=== PATIENT | female | born 1985 | race Caucasian/White ===

== ENCOUNTER → 2023-12-11 | Outpatient (CLI) | payer BC | END | disposition home or self-care (01) | LOC: RAD 07:32 | PROVIDERS: ATTEND Nurse Practitioner Family | DX: M47.812 Spondylosis without myelopathy or radiculopathy, cervical region (principal); M25.78 Osteophyte, vertebrae; R42 Dizziness and giddiness; R25.1 Tremor, unspecified; R51.9 Headache, unspecified | CPT/HCPCS: 70553; 72156; A9579 ==

== ENCOUNTER 2024-08-03 08:54 | Emergency (ER) | payer BC ==
[~2024-08-03] VITALS: Ht 162.6 cm; Wt 97.1 kg
[2024-08-03 08:54] VITALS: BP 117/85; PULSE 90; RESP 18; TEMP 98.5; O2SAT 97
[2024-08-03 09:11] LABS: BASOPHIL % 0.3 % (0.1-1.2); EOSINOPHIL # 0.1 10^3/uL (0.0-0.2); HEMATOCRIT(ML) 40.7 % (36.0-46.0); HEMOGLOBIN 13.5 g/dL (12.0-15.0); LYMPHOCYTES # 1.47 10^3/uL1 (1.0-4.8); LYMPHOCYTES % 24.5 % (24.0-44.0); MEAN CORP HGB CONCENTRATION 33.2 g/dL (33-36.5); MEAN CORP VOLUME 87.5 fL (78-100); MONOCYTES # 0.4 10^3/uL (0.3-0.8); MONOCYTES % 7.2 % (5.0-12.0); NEUTROPHILS % 66.8 % (41.0-85.0); PLATELET COUNT 234 10^3/uL (150-400); RED BLOOD CELL 4.65 10^6/uL (4.00-5.20); RED CELL DISTRIBUTION WIDTH 12.7 % (11.5-14.5)
[2024-08-03 09:13] LABS: +ADD MANUAL DIFF(NO CHRG) NO
[2024-08-03 09:24] LABS: INR 0.9; PROTHROMBIN PROTIME 9.9 SEC (9.7-11.6)
[2024-08-03 09:38] LABS: ALANINE AMINOTRANSFERASE(ML) 19 U/L (12-78); ALBUMIN(ML) 3.8 g/dL (3.4-5.0); ALBUMIN/GLOBULIN RATIO 1.117; ALKALINE PHOSPHATASE 57 U/L (50-136); ANION GAP 15.3; ASPARTATE AMINO TRANSFERASE 11 U/L (0-35); CARBON DIOXIDE 21.9 mmol/L (20.0-32); CREATININE SERUM 0.95 mg/dL (0.59-1.40); EST GFR, NON-AA 65.2 (>/=60); GLUCOSE 85 mg/dL (74-106); POTASSIUM 4.2 mmol/L (3.6-5.2); SODIUM 140 mmol/L (132-145)
[2024-08-03 09:39] LABS: TROPONIN I HIGH SENSITIVITY < 4 ng/L (0-50)
[2024-08-03 09:52] VITALS: BP 109/58; PULSE 59; RESP 18; TEMP 98.5; O2SAT 97
[2024-08-03] MEDS ORDERED: LOVENOX SQ ONE (10:05)
[2024-08-03] MEDS: LOVENOX SQ STA (10:12)
== END 2024-08-03 10:12 | disposition home or self-care (01) ==
LOC: ER 08:54
DX: R07.81 Pleurodynia (principal); K21.9 Gastro-esophageal reflux disease without esophagitis; Z86.711 Personal history of pulmonary embolism; Z86.718 Personal history of other venous thrombosis and embolism; Z90.49 Acquired absence of other specified parts of digestive tract; Z98.84 Bariatric surgery status
CPT/HCPCS: 99291; 96372; 71045; 80053; 85025; 36415; 85379; 84484; 83880; 85610; 93005; J1650; 82550; 82553; 85730; 86677

== ENCOUNTER → 2024-09-21 | Outpatient (CLI) | payer BC | END | disposition home or self-care (01) | LOC: RAD 13:49 | PROVIDERS: ATTEND Nurse Practitioner Family | DX: Z12.31 Encounter for screening mammogram for malignant neoplasm of breast (principal); R92.323 Mammographic fibroglandular density, bilateral breasts | CPT/HCPCS: 77063; 77067 ==